=== PATIENT | male | born 1980 | race Caucasian/White ===

== ENCOUNTER 2024-08-10 08:36 | Emergency (ER) | payer OTHER, SELFPAY ==
[2024-08-10 08:44] VITALS: BP 128/67; PULSE 72; RESP 16; TEMP 36.9; O2SAT 99; BMI 30.1
--- NOTE | 2024-08-10 08:47 | ECG_ITS ---
Test Reason : dizziness Blood Pressure : / mmHG Vent. Rate : 058 BPM Atrial Rate : 058 BPM P-R Int : 136 ms QRS Dur : 110 ms QT Int : 398 ms P-R-T Axes : 037 023 029 degrees QTc Int : 390 ms Sinus bradycardia Otherwise normal ECG No previous ECGs available Referred By: Generic ED Physician Electronically Signed By:MANDIE PAULA
[2024-08-10 08:59] LABS: MANUAL DIFF FLAG NO
[2024-08-10 09:02] LABS: Basophils Absolute Auto 0.1 X10*3/uL (0.0-0.2); Basophils Percent Auto 0.7 % (0-2); Eosinophils Percent Auto 0.3 % (0-4); Hemoglobin 14.2 g/dl (14.0-18.0); Imm Gran Abs Auto 0.04 X10*3/uL (0.00-0.03); Imm Gran Pct Auto 0.5 % (0.0-0.4); Lymphocytes Absolute Auto 2.1 X10*3/uL (1.2-4.9); Lymphocytes Percent Auto 27.1 % (20-40); Mean Corpuscular HGB Conc 33.8 g/dl (31.0-36.0); Mean Corpuscular Hemoglobin 31.4 pg (27.0-33.0); Mean Corpuscular Volume 92.9 fL (80.0-98.0); Monocytes Absolute Auto 0.8 X10*3/uL (0.1-1.2); Monocytes Percent Auto 10.1 % (2-11); Neutrophils Absolute Auto 4.6 x10*3/uL (2.0-8.3); Neutrophils Percent Auto 61.3 % (45-73); Platelet Count 303 X10*3/uL (160-400); Red Blood Count 4.52 X10*6/uL (4.60-5.80); Red Cell Distribution Width 12.9 % (11.0-16.0); White Blood Count 7.6 X10*3/uL (4.8-10.8)
[2024-08-10 09:23] LABS: Alanine Aminotransferase 13 U/L (0-40); Albumin Level 4.4 g/dL (3.5-5.0); Alkaline Phosphatase 47 U/L (39-117); Anion Gap 11 (12-20); Aspartate Amino Transferase 12 U/L (5-37); Bilirubin Total 0.4 mg/dL (0.0-1.0); Blood Urea Nitrogen 16 mg/dL (9-16); Calcium 9.8 mg/dL (8.4-10.2); Carbon Dioxide 25 mmol/L (22-29); Chloride 109 mmol/L (96-108); Creatinine Clr Calc Pharmacy 114.8; Estimated Glomerular Filt Rate > 60; Glucose Random 129 mg/dL (60-115); Potassium 3.8 mmol/L (3.3-5.1); Sodium 141 mmol/L (135-145); Total Protein 7.8 g/dL (6.5-8.0)
--- NOTE | 2024-08-10 11:15 | ED_ITS ---
HPI - General Adult General Chief complaint: General Medical Stated complaint: feet tingling dizzy Time Seen by Provider: 08/10/24 13:43 Source: patient Mode of arrival: ambulatory Limitations: no limitations History of Present Illness ED Provider: NENA CUEVAS PA-C HPI narrative: 43 year old male with no significant pmhx presents to the ED today for evaluation of tingling to hands/ feet x2-3 weeks. Reports this primarily happens when he lies down for bed at night. Endorses intermittent headaches which feel similar to his normal. Denies injury/ trauma to the head or back. Admits to taking shots of vodka occasionally. Endorses typical life stressors. Deneis increased anxiety. Admits to smoking marijuana however recently had to cut back as this was making his symptoms worse. Denies hx of DM. Denies dizziness, fever, chills, chest pain, palpitations, sob, pain/weakness/numbness to extremities. Related Data Previous Rx's ?Medication ?Instructions ?Recorded [id number] 250 1 tab PO Q6H PRN pain (scale score 08/10/24 mg-250 mg-65 mg tablet (Excedrin 4-6) #7 tabs Migraine) diphenhydramine HCl 50 mg tablet 50 mg PO Q8H PRN motion sickness 08/10/24 (Benadryl Allergy) #14 tabs metoclopramide HCl 10 mg tablet 10 mg PO Q6H PRN nausea and 08/10/24 (Reglan) vomiting #10 tabs Allergies Allergy/AdvReac Type Severity Reaction Status Date / Time amoxicillin Allergy Unknown Verified 08/10/24 08:46 Review of Systems 2 Review of Systems: Constitutional: No fever, chills, fatigue, night sweats, weight changes ENT/Mouth: No ear pain, hearing loss, nasal congestion, sinus pain, rhinorrhea, sore throat Eyes: No eye pain, swelling, redness, vision changes, discharge Cardio: No chest pain, palpitations, ROCHE, orthopnea, peripheral edema Pulm: No SOB, cough, sputum, wheezing, dyspnea, hemoptysis GI: No nausea, vomiting, hematemesis, abdominal pain, diarrhea, constipation, hematochezia, melena : No irregular bleeding, dysuria, frequency, urgency, hesitancy, hematuria, flank pain, urinary flow changes, urinary incontinence or retention MSK: No back pain, neck pain, joint pain, myalgias Skin: No lesions, rashes Neuro: No weakness, numbness, +paresthesias, No LOC, dizziness, +headache Psych: No anxiety/panic, depression, SI/HI, AH/VH All other systems reviewed and are negative. [facility] Past Medical History Attestation statement: The following information was validated with the patient. Source: old records reviewed and nursing notes reviewed Social History Social History Advance Directives: No Advance Directives Information Provided: No Physical Exam ED Vital Signs: Vital Signs - 24 hr 08/10/24 08:44 08/10/24 11:16 08/10/24 15:23 Temperature 98.4 F 98.1 F 98.1 F Pulse Rate 72 84 84 Respiratory Rate 16 18 18 Blood Pressure 128/67 150/86 H 150/86 H Pulse Oximetry 99 98 98 Oxygen Delivery Method Room Air Room Air Room Air BMI result Body Mass Index 30.1 vital signs stable General: Well appearing, in no acute distress. Skin: Warm, dry, intact. No rashes or lesions. Head: Normocephalic, atraumatic. EENT: Hearing is intact b/l. Conjunctiva clear. Sclera is anicteric. PERRLA. EOM intact. Moist mucous membranes.? Neck: Supple without LAD Cardiac: Chest wall symmetric. RRR. Lungs: Normal respiratory effort without accessory muscle use. CTA bilaterally. Abdomen: Soft, non-tender, non-distended. No rebound tenderness or guarding. Positive BS x4. Back: No midline spinous or paraspinal tenderness. No step off deformity. Ext: Upper and lower extremities atraumatic, without tenderness, deformity, swelling or erythema. Full ROM throughout. Pulses 2+ equal and bilateral. Neuro: AOx3. Normal speech.Strength 5/5 intact throughout. Sensation intact to light touch. NV intact distally. Reflexes 2+ bilaterally. Ambulating with steady gait. Psych: Appropriate mood and affect. Responds appropriately to questions. Course Course Course Narrative: RME performed by Yari Ferro PA-C. Patient is a 43 year old assigned male at presenting to the emergency department with bilateral lower leg tingling and feeling out of it . Patient states that he is having a lot of tingling in both of his lower legs and feels out of it and out of body . 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 Labs ordered. Patient placed back in the waiting room pending room availability and results. Reevaluation(s) Reevaluation #1: 5775 -- CBC without leukocytosis or left shift. No anemia. H&H stable. Chemistry without acute electrolyte abnormality requiring intervention. Random glucose 129. Normal renal and liver function. EKG showing sinus bradycardia at a rate of 58 beats per minute without acute ischemic changes or ST elevations. > patient's physical exam is benign. Workup is reassuring. I have suspicion that patient's symptoms are anxiety induced, specifically given that they are worse with smoking marijuana. He also endorses headache. I offered to administer migraine cocktail here however he states that he drove himself here in his unable to find a ride home. Will send medication to pharmacy for headache. Advised to follow up with neurologist for possible nerve conduction studies if symptoms continue although neuropathy less likely. Patient has remained stable throughout ED visit today. Discussed worrisome signs and symptoms and when to return to the ED. All questions answered at this time. Patient is agreeable with disposition and stable for discharge. Medical Decision Making Medical Decision Making [facility] Narrative: 43 year old male with no significant pmhx presents to the ED today for evaluation of tingling to hands/ feet x2-3 weeks. Vital signs stable. Afebrile. Patient is very anxious appearing on exam, talking very quickly. No focal neuro deficits. Ambulating with steady gait. 2+ patellar and brachial DTRs intact bilaterally. No midline spinous tenderness or step off deformity. Differential diagnosis includes anemia, electrolyte abnormality, dehydration, neuropathy, anxiety, headache vs migraine headache, cervical vs lumbar radiculopathy. Presentation not consistent with MS, Guillain-Drumore, cauda equina, cord compression, ACS, arrhythmia. Plan for labs, ekg, re-evaluation. Differential Diagnosis Differential Diagnoses: The differential diagnosis associated with the presentation includes as above. Admission/Observation not indicated Lab Data [facility] Lab Attestation statement: I reviewed the patient's lab results. as above. 08/10/24 08:55 08/10/24 08:55 Labs: Lab Results 08/10/24 Range/Units 08:55 WBC 7.6 (4.8-10.8) X10*3/uL RBC 4.52 L (4.60-5.80) X10*6/uL Hgb 14.2 (14.0-18.0) g/dl Hct 42.0 (42.0-52.0) % MCV 92.9 (80.0-98.0) fL MCH 31.4 (27.0-33.0) pg MCHC 33.8 (31.0-36.0) g/dl RDW 12.9 (11.0-16.0) % Plt Count 303 (160-400) X10*3/uL MPV 10.0 (9.4-12.4) fL Immature Gran % (Auto) 0.5 H (0.0-0.4) % Neut % (Auto) 61.3 (45-73) % Lymph % (Auto) 27.1 (20-40) % [place] % (Auto) 10.1 (2-11) % Eos % (Auto) 0.3 (0-4) % Baso % (Auto) 0.7 (0-2) % Lymph # (Auto) 2.1 (1.2-4.9) X10*3/uL [place] # (Auto) 0.8 (0.1-1.2) X10*3/uL Eos # (Auto) 0.0 (0.0-0.4) X10*3/uL Baso # (Auto) 0.1 (0.0-0.2) X10*3/uL Abs Immat Gran (auto) 0.04 H (0.00-0.03) X10*3/uL Absolute Neuts (auto) 4.6 (2.0-8.3) x10*3/uL Absolute Nucleated RBC 0.000 (0.0-0.012) X10*3/uL Nucleated RBC % (auto) 0.0 (0.0-0.2) /100WBC Sodium 141 (135-145) mmol/L Potassium 3.8 (3.3-5.1) mmol/L Chloride 109 H (96-108) mmol/L Carbon Dioxide 25 (22-29) mmol/L Anion Gap 11 L (12-20) BUN 16 (9-16) mg/dL Creatinine 1.00 (0.5-1.4) mg/dL Estim Creat Clear Calc 114.8 Estimated GFR > 60 Random Glucose 129 H (60-115) mg/dL Calcium 9.8 (8.4-10.2) mg/dL Magnesium 2.1 (1.6-2.6) mg/dL Total Bilirubin 0.4 (0.0-1.0) mg/dL AST 12 (5-37) U/L ALT 13 (0-40) U/L Alkaline Phosphatase 47 (39-117) U/L Total Protein 7.8 (6.5-8.0) g/dL Albumin 4.4 (3.5-5.0) g/dL Independent Interpretation I performed an independent interpretation of an: EKG Interpretation: EKG showing sinus bradycardia at a rate of 58 beats per minute, QT 398, QTC 390, no acute ischemic changes or ST elevations. External Record Review External record reviewed: Inpatient record Prescription Management I considered prescription management with: Other (Reglan, Benadryl, Excedrin) Social Determinants Patient?s care significantly limited by Social Determinants of Health including: Other Social Determinant of Health Critical Care Time Critical Care Time Critical Care Time: No Discharge Plan Discharge Clinical Impression: Headache, Paresthesia Patient Disposition: Home, Self-Care Instructions: Paresthesia (ED), General Headache (ED) Additional Instructions: You have been evaluated in the Emergency Department today for headache adn numbness/tingling of your extremities. Your evaluation did not show evidence of medical conditions requiring emergent intervention at this time. Sometimes it is difficult to explain the cause of headache but the negative workup today is reassuring. The tingling in your extremities may be due to anxiety. I suggest you discontinue use of marijuana until you are able to follow up with a provider out patient. I want you to take the following 3 medications together every 6 hours as needed for headache, nausea or vomiting. ? - Reglan 10 mg - Benadryl 50 mg - Excedrin migraine After you take these medications, lie down in a dark quiet room and try to fall asleep. ?These medications will make you sleepy, do not drive or work after taking these medications. Please follow up with your primary care physician. You have been provided with a referral to a neurologist for nerve conduction studies. Call them to make an appointment, they will not call you. Return to the Emergency Department if you experience worsening or uncontrolled pain, vision changes, recurrent vomiting, difficulty with normal activities, abnormal behavior, difficulty walking, numbness, weakness, or any other concerning symptoms. Prescriptions: New metoclopramide HCl [Reglan] 10 mg tablet 10 mg PO Q6H PRN (Reason: nausea and vomiting) Qty: 10 0RF Benadryl Allergy 50 mg tablet 50 mg PO Q8H PRN (Reason: motion sickness) Qty: 14 0RF Excedrin Migraine 250-250-65 mg tablet 1 tab PO Q6H PRN (Reason: pain (scale score 4-6)) Qty: 7 0RF Referrals: [facility] [place] Primary Care, [facility] [Provider Group] [facility] [place] Primary Care,Kiran [Provider Group] [facility] [place] Neuro/Sleep [Provider Group] Rosalie Strauss MD [Primary Care Provider] - Interventions: ED Discharge Assessment Last Done: 08/10/24 15:23 Discharge Date/Time: 08/10/24 15:24 Print Language: Maltese
[2024-08-10 11:16] VITALS: BP 150/86; PULSE 84; RESP 18; TEMP 36.7; O2SAT 98
--- NOTE | 2024-08-10 13:51 | ED.GENADULT ---
HPI - General Adult General Chief complaint: General Medical Stated complaint: feet tingling dizzy Time Seen by Provider: 08/10/24 13:43 History of Present Illness HPI narrative: 43 yo male without significant PMH presenting to ED for 3 x week symptoms of intermittent dizziness, fuzzy, sleepy tingling feeling to BLE (most to the area of the feet and to the back of the calves, [facility] up- posterior only), does not radiate however states that it sometimes occurs in bilateral hands but only at rest when he is readying for bed. No inciting injuries, or historical injuries that he is aware of. Denies taking any substances or medications, or supplements. States that anything body slowing exacerbates the symptoms such as marijuana and alcohol, he has been unable to tolerate consumption of either product. States at baseline he is a daily marijuana smoker however was unable to tolerate last ingestion which was about one week prior to this visit. No change in LOC, no falls. 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 States he feels like when he looks at himself he can see his eyes are somewhat sunken in over the last 3 x weeks- sleep has been disrupted he reports increased wakening but is able to return back to sleep. Denies any congestions, no runny nose, denies cough, states SOB sometimes at night, mentions it's more like a heavy breathing than short of breath . Denies any ear pain, changes in hearing, or any discharge from the ears. Denies allergies, then states I mean I guess maybe allergies could be doing this but not really sure what's going on . Denies ayn feelings of paranoia or hx of, denies feeling anxious at baseline states perhaps sometimes when he is awakend that maybe he feels some anxiety but that's it. Related Data Allergies Allergy/AdvReac Type Severity Reaction Status Date / Time amoxicillin Allergy Unknown Verified 08/10/24 08:46 [facility] Social History Social History Advance Directives: No Advance Directives Information Provided: No Physical Exam ED Vital Signs: Vital Signs - 24 hr 08/10/24 08:44 08/10/24 11:16 Temperature 98.4 F 98.1 F Pulse Rate 72 84 Respiratory Rate 16 18 Blood Pressure 128/67 150/86 H Pulse Oximetry 99 98 Oxygen Delivery Method Room Air Room Air BMI result Body Mass Index 30.1 Medical Decision Making Lab Data 08/10/24 08:55 08/10/24 08:55 Labs: Lab Results 08/10/24 Range/Units 08:55 WBC 7.6 (4.8-10.8) X10*3/uL RBC 4.52 L (4.60-5.80) X10*6/uL Hgb 14.2 (14.0-18.0) g/dl Hct 42.0 (42.0-52.0) % MCV 92.9 (80.0-98.0) fL MCH 31.4 (27.0-33.0) pg MCHC 33.8 (31.0-36.0) g/dl RDW 12.9 (11.0-16.0) % Plt Count 303 (160-400) X10*3/uL MPV 10.0 (9.4-12.4) fL Immature Gran % (Auto) 0.5 H (0.0-0.4) % Neut % (Auto) 61.3 (45-73) % Lymph % (Auto) 27.1 (20-40) % [place] % (Auto) 10.1 (2-11) % Eos % (Auto) 0.3 (0-4) % Baso % (Auto) 0.7 (0-2) % Lymph # (Auto) 2.1 (1.2-4.9) X10*3/uL [place] # (Auto) 0.8 (0.1-1.2) X10*3/uL Eos # (Auto) 0.0 (0.0-0.4) X10*3/uL Baso # (Auto) 0.1 (0.0-0.2) X10*3/uL Abs Immat Gran (auto) 0.04 H (0.00-0.03) X10*3/uL Absolute Neuts (auto) 4.6 (2.0-8.3) x10*3/uL Absolute Nucleated RBC 0.000 (0.0-0.012) X10*3/uL Nucleated RBC % (auto) 0.0 (0.0-0.2) /100WBC Sodium 141 (135-145) mmol/L Potassium 3.8 (3.3-5.1) mmol/L Chloride 109 H (96-108) mmol/L Carbon Dioxide 25 (22-29) mmol/L Anion Gap 11 L (12-20) BUN 16 (9-16) mg/dL Creatinine 1.00 (0.5-1.4) mg/dL Estim Creat Clear Calc 114.8 Estimated GFR > 60 Random Glucose 129 H (60-115) mg/dL Calcium 9.8 (8.4-10.2) mg/dL Total Bilirubin 0.4 (0.0-1.0) mg/dL AST 12 (5-37) U/L ALT 13 (0-40) U/L Alkaline Phosphatase 47 (39-117) U/L Total Protein 7.8 (6.5-8.0) g/dL Albumin 4.4 (3.5-5.0) g/dL Discharge Plan Discharge Print Language: Azeri
[2024-08-10 15:04] LABS: Magnesium 2.1 mg/dL (1.6-2.6)
[2024-08-10 15:23] VITALS: BP 150/86; PULSE 84; RESP 18; TEMP 36.7; O2SAT 98
== END 2024-08-10 15:24 | disposition home or self-care (01) ==
PROVIDERS: Physician Assistant; Emergency Provider Emergency Medicine Emergency Medical Services; PCP Family Medicine
DX: R51.9 Headache, unspecified (principal); R20.2 Paresthesia of skin; R42 Dizziness and giddiness
CPT/HCPCS: 36415; 80053; 83735; 85025; 93005; 99283